=== PATIENT | male | born 1975 | race Two or more races ===

== ENCOUNTER 2018-03-15 11:22 | Emergency (ER) | payer OTHER ==
[~2018-03-15] VITALS: Ht 177.8 cm; Wt 77.1 kg
[2018-03-15 16:19] VITALS: BP 127/75
== END 2018-03-15 16:44 | disposition short-term general hospital (02) ==
LOC: ER 11:22
DX: S05.91XA Unspecified injury of right eye and orbit, initial encounter (principal); F12.10 Cannabis abuse, uncomplicated; H53.8 Other visual disturbances; W21.09XA Struck by other hit or thrown ball, initial encounter; Y93.73 Activity, racquet and hand sports; Y92.89 Other specified places as the place of occurrence of the external cause; Y99.8 Other external cause status
CPT/HCPCS: 70480